=== PATIENT | female | born 1985 | race Caucasian/White ===

== ENCOUNTER → 2020-03-22 | Outpatient (CLI) | payer OTHER ==
--- NOTE | 2020-03-22 15:50 | US ---
EXAMINATION TYPE: US abdomen complete DATE OF EXAM: 03/22/2020 COMPARISON: NONE CLINICAL HISTORY: R10.9 Abd pain. Pt states recent abnormal labs EXAM MEASUREMENTS: Liver Length: 16.2 cm Gallbladder Wall: 0.2 cm CBD: 0.4 cm Spleen: 10.6 cm Right Kidney: 11.0 x 3.5 x 4.4 cm Left Kidney: 11.3 x 4.4 x 4.5 cm Pancreas: wnl Liver: wnl Gallbladder: wnl Evidence for sonographic Kilgore's sign: No CBD: wnl Spleen: wnl Right Kidney: Visualized portions appeared wnl Left Kidney: Visualized portions appeared wnl Upper IVC: wnl Abd Aorta: wnl IMPRESSION: 1. Normal abdomen ultrasound
== END | disposition home or self-care (01) ==
LOC: RADUSWWP 08:18
PROVIDERS: ATTEND Family Medicine
DX: R10.9 Unspecified abdominal pain (principal)
CPT/HCPCS: 76700

== ENCOUNTER → 2021-05-31 | Outpatient (CLI) | payer OTHER ==
--- NOTE | 2021-05-31 14:44 | US ---
EXAMINATION TYPE: US thyroid st tissue head/neck DATE OF EXAM: 05/31/2021 COMPARISON: NONE CLINICAL HISTORY: E04.1 thyroid nodule. Pt states thyroid felt enlarged per her physician GLAND SIZE: Right Lobe: 5.4 x 1.7 x 1.8 cm Overall Parenchyma: homogenous Left Lobe: 5.3 x 2.7 x 2.3 cm Overall Parenchyma: homogeneous Isthmus Thickness: 0.3 cm NODULES RIGHT: # of nodules measured on right: 1 1. 0.7 X 0.5 x 0.6 cm, lower, solid or almost completely solid, hypoechoic nodule, which is wider t [place] tall, with smooth margins, without echogenic foci. Prior size: No prior LEFT: # of nodules measured on left: 1 1. 3.8 X 1.8 x 2.5 cm, mid, solid or almost completely solid, hypoechoic nodule, which is wider sharyn n tall, with smooth margins, without echogenic foci. Prior size: No prior ISTHMUS: # of nodules measured in the isthmus: 0 Bilateral neck scanned, no evidence of lymphadenopathy. Nodules bilaterally with larger one on left s jesse. IMPRESSION: 1. Thyroidomegaly. 2. Solid nodule left thyroid lobe. Consider tissue diagnosis. 3. Subcentimeter nodule right thyroid lobe. Continued follow-up is advised.
== END | disposition home or self-care (01) ==
LOC: RADUSWWP 14:04
PROVIDERS: ATTEND Family Medicine
DX: E04.2 Nontoxic multinodular goiter (principal)
CPT/HCPCS: 76536

== ENCOUNTER 2021-07-20 09:28 | Day surgery (SDC) | payer OTHER ==
[2021-07-20 09:40] VITALS: BP 134/80; PULSE 81; RESP 16; TEMP 97.7
[2021-07-20] MEDS ORDERED: ALPRAZolam 0.25 MG TAB PO STA (09:43)
--- NOTE | 2021-07-20 11:04 | US ---
ULTRASOUND GUIDED FNA THYROID BIOPSY: CLINICAL HISTORY: Left thyroid nodule FINDINGS: The procedure was explained to the patient. The risks, complications, benefits and alternatives were discussed and any questions were answered. Informed consent was obtained. Patient was placed supin e on the ultrasound table and prepped and draped in the usual sterile fashion. Utilizing a 25 gauge needle, five passes were made into the requested left thyroid nodule. Patient was stable throughout the procedure. Pathology is pending. All elements of maximal barrier technique were utilized. IMPRESSION: 1. Successful ultrasound guided FNA thyroid biopsy.
== END 2021-07-20 10:50 | disposition home or self-care (01) ==
LOC: RADPROMAIN 09:28
PROVIDERS: ATTEND Otolaryngology
DX: E04.1 Nontoxic single thyroid nodule (principal)
CPT/HCPCS: 10005; 88173; 88305

== ENCOUNTER → 2021-10-02 | Outpatient (CLI) | payer OTHER ==
--- NOTE | 2021-10-04 06:53 | US ---
EXAMINATION TYPE: US thyroid st tissue head/neck DATE OF EXAM: 10/02/2021 COMPARISON: 07/20/2021 CLINICAL HISTORY: E04.1 LT THYROID NODULE. Follow up thyroid nodules. GLAND SIZE: Right Lobe: 4.7 x 1.5 x 1.3 cm Overall Parenchyma: homogenous Left Lobe: 5.1 x 2.6 x 2.3 cm Overall Parenchyma: homogeneous Isthmus Thickness: 0.2 cm NODULES RIGHT: # of nodules measured on right: 1 1. 0.7 X 0.7 x 0.5 cm, lower medial, solid or almost completely solid, hypoechoic nodule, which is wider than tall, with ill-defined margins, without echogenic foci. Prior size: 0.7 x 0.5 x 0.6 cm LEFT: # of nodules measured on left: 1 1. 3.8 X 2.5 x 1.7 cm, upper mid, solid or almost completely solid, hypoechoic nodule, which is wid er than tall, with smooth margins, without echogenic foci. Prior size: 3.8 x 2.5 x 1.8 cm ISTHMUS: # of nodules measured in the isthmus: 0 Bilateral neck scanned, no evidence of lymphadenopathy. IMPRESSION: Stable nonspecific thyroid nodularity.
== END | disposition home or self-care (01) ==
LOC: RADUSWWP 13:41
PROVIDERS: ATTEND Otolaryngology
DX: E04.2 Nontoxic multinodular goiter (principal)
CPT/HCPCS: 76536

== ENCOUNTER → 2022-10-31 | Outpatient (CLI) | payer OTHER ==
--- NOTE | 2022-10-31 23:41 | US ---
EXAMINATION TYPE: US thyroid st tissue head/neck DATE OF EXAM: 10/31/2022 COMPARISON: US 10/06/2021 CLINICAL INDICATION: Female, 36 years old with history of E04.1 NONTOXIC SINGLE THYROID NODULE; Hx FN A, hx nodule. GLAND SIZE: Right Lobe: 5.4 x 2.0 x 1.8 cm Overall Parenchyma: homogenous Left Lobe: 5.9 x 2.8 x 2.2 cm Overall Parenchyma: homogeneous Isthmus Thickness: 0.2 cm NODULES RIGHT: # of nodules measured on right: 1 1. 0.9 X 0.8 x 0.5 cm, lower medial, solid or almost completely solid, hypoechoic nodule, which is wider than tall, with ill-defined margins, without echogenic foci. TR 4 Prior size: 0.7 x 0.7 x 0.5 cm LEFT: # of nodules measured on left: 1 1. 4.1 X 2.8 x 1.7 cm, mid mid, solid or almost completely solid, hypoechoic nodule, which is wider than tall, with smooth margins, without echogenic foci. TR 4 Prior size: 3.8 x 2.5 x 1.7 cm ISTHMUS: # of nodules measured in the isthmus: 0 Bilateral neck scanned, no evidence of lymphadenopathy. IMPRESSION: 1. Moderately suspicious nodule inferior pole left lobe thyroid. Fine-needle aspiration recommended. 2017 ACR TI-RADS LEVEL: TR-RADS 4 - Moderately Suspicious: Follow if > 1 cm, FNA if > 1.5 cm *Highest TI-RADS level nodule reported
== END | disposition home or self-care (01) ==
LOC: RADUSWWP 09:24
PROVIDERS: ATTEND Otolaryngology
DX: E04.1 Nontoxic single thyroid nodule (principal)
CPT/HCPCS: 76536

== ENCOUNTER → 2023-04-19 | Outpatient (CLI) | payer OTHER ==
--- NOTE | 2023-04-19 09:54 | US ---
EXAMINATION TYPE: US thyroid st tissue head/neck DATE OF EXAM: 04/19/2023 COMPARISON: 10/31/2022 CLINICAL INDICATION: Female, 37 years old with history of E04.2 NONTOXIC MULTINODULAR GOITER; Patient states that they are keeping an eye on thyroid nodule that had previous FNA. Patient states that tho se results came back as inconclusive GLAND SIZE: Right Lobe: 5.0 x 1.4 x 1.5 cm Overall Parenchyma: homogeneous Left Lobe: 5.6 x 2.6 x 2.6 cm Overall Parenchyma: heterogenous Isthmus Thickness: 0.3 cm NODULES RIGHT: # of nodules measured on right: 1 1. 0.5 X 0.7 x 0.5 cm, lower medial, solid or almost completely solid, hypoechoic nodule, which is wider than tall, with ill-defined margins, without echogenic foci. Prior size: 0.9 x 0.5 x 0.8 cm LEFT: # of nodules measured on left: 1 1. 4.2 X 2.0 x 2.7 cm, mid mid, solid or almost completely solid, hypoechoic nodule, which is wider than tall, with well defined margins, without echogenic foci. Prior size: 4.1 x 1.7 x 2.8 cm ISTHMUS: # of nodules measured in the isthmus: 0 Bilateral neck scanned, no evidence of lymphadenopathy. IMPRESSION: Moderately Suspicious: FNA if ? 1.5 cm; Follow if ? 1 cm at 1, 2, 3, and 5 y 2017 ACR TI-RADS LEVEL: TR3 *Highest TI-RADS level nodule reported
== END | disposition home or self-care (01) ==
LOC: RADUSWWP 08:47
PROVIDERS: ATTEND Otolaryngology
DX: E04.2 Nontoxic multinodular goiter (principal)
CPT/HCPCS: 76536